=== PATIENT | female | born 1935 | race Hispanic/Latino ===

== ENCOUNTER 2025-07-15 16:41 | Emergency (ER) | payer MEDICARE ==
[~2025-07-15] VITALS: Ht 154.9 cm; Wt 61.7 kg
[2025-07-15 22:15] VITALS: PULSE 65; RESP 20; TEMP 97.7
[2025-07-15] MEDS ORDERED: ULTRAM 50MG50 MG PO (22:15)
[2025-07-15 22:52] VITALS: BP 121/58; PULSE 65; RESP 20; TEMP 97.7; O2SAT 97
== END 2025-07-15 22:44 | disposition home or self-care (01) ==
LOC: ER 18:15
DX: M25.552 Pain in left hip (principal); M54.50 Low back pain, unspecified; I10 Essential (primary) hypertension; E11.9 Type 2 diabetes mellitus without complications; E78.5 Hyperlipidemia, unspecified; F03.90 Unspecified dementia, unspecified severity, without behavioral disturbance, psychotic disturbance, mood disturbance, and anxiety
CPT/HCPCS: 72131; 72192; 74176; 99283